=== PATIENT | male | born 1945 | race Caucasian/White ===

== ENCOUNTER → 2016-07-19 | Outpatient (CLI) | payer OTHER ==
[~2016-07-19] MED LIST: BNC/40 PO; FENO200C6 PO; IPRA1AER2 INH; MECL1TAB40 PO; MOME6000 NAE; MULT-506 PO; NIAC500T11 PO; NXM/40 PO; OMEG10007 PO; TRIA37.5 PO; WLC625 PO
[2016-07-19 17:41] LABS: ALT/SGPT 35 U/L (12-78); BLOOD UREA NITROGEN 23 mg/dl (7-18); BUN/CREATININE RATIO 20.7 (10-20); CALCIUM 10.1 mg/dl (8.5-10.1); CARBON DIOXIDE 27 mmol/L (21-32); CHLORIDE 104 mmol/L (98-107); CHOLESTEROL 198 mg/dl (0-200); CHOLESTEROL/HDL RATIO 8.3; GLUCOSE 116 mg/dl (70-99); HDL CHOLESTEROL 24 mg/dl; POTASSIUM 3.9 mmol/L (3.5-5.1); SODIUM 140 mmol/L (136-145); TRIGLYCERIDES 499 mg/dl (0-150)
[2016-07-20 06:55] LABS: ESTIMATED AVERAGE GLUCOSE 148 mg/dl; HA1C FLAG Normal (Normal)
== END | disposition home or self-care (01) ==
LOC: C.LABPBG 13:23
PROVIDERS: ATTEND Family Medicine
DX: Z00.00 Encounter for general adult medical examination without abnormal findings (principal); E78.1 Pure hyperglyceridemia; E78.5 Hyperlipidemia, unspecified; R73.09 Other abnormal glucose; N17.9 Acute kidney failure, unspecified

== ENCOUNTER → 2017-01-31 | Outpatient (CLI) | payer OTHER ==
[2017-01-31 12:32] LABS: ALT/SGPT 40 U/L (12-78); BLOOD UREA NITROGEN 27 mg/dl (7-18); BUN/CREATININE RATIO 19.1 (10-20); CALCIUM 10.1 mg/dl (8.5-10.1); CARBON DIOXIDE 31 mmol/L (21-32); CHLORIDE 104 mmol/L (98-107); CHOLESTEROL 226 mg/dl (0-200); CHOLESTEROL/HDL RATIO 7.1; GLUCOSE 124 mg/dl (70-99); HDL CHOLESTEROL 32 mg/dl; SODIUM 138 mmol/L (136-145)
[2017-01-31 12:33] LABS: LDL CHOLESTEROL CALCULATED 140 mg/dl; TRIGLYCERIDES 269 mg/dl (0-150); VERY LOW DENSITY LIPOPROT CALC 54 mg/dl
[2017-01-31 13:00] LABS: ESTIMATED AVERAGE GLUCOSE 148 mg/dl; HA1C FLAG Normal (Normal)
== END | disposition home or self-care (01) ==
LOC: C.LABPBG 07:56
PROVIDERS: ATTEND Family Medicine
DX: E78.5 Hyperlipidemia, unspecified (principal); R73.09 Other abnormal glucose

== ENCOUNTER → 2017-04-03 | Day surgery (SDC) | payer OTHER ==
[2017-03-17 07:38] VITALS: Ht 182.9 cm; Wt 119.1 kg
[~2017-04-03] VITALS: Ht 182.9 cm; Wt 119.1 kg
[~2017-04-03] MED LIST changes: +LIDOCAINE HCL 2% 2 ML VIAL (20MG/ML) ONE; +PROPOFOL IV EMULSION 10 MG/ML 20 ML VIAL IV ONE
--- NOTE | 2017-04-03 12:52 | Endo History and Physical ---
History & Physical Date of Service: Apr 03, 2017. Chief Complaint: Screening Referring Physician: Dr. Mallory History of Present Illness 71 yo CM who presents for screening colonoscopy. Past Surgical History Hx Cardiac Surgery: No Hx Internal Defibrillator: No Hx Pacemaker: No Hx Abdominal Surgery: Yes (APPY) Hx of Implantable Prosthesis: No Hx Post-Op Nausea and Vomiting: No Hx Cancer Surgery: No Hx Thoracic Surgery: No Hx Orthopedic: Yes (RT KNEE SURGERY X2) Hx Urinary Tract Surgery: No Family History Polyp Social History Smoking Status: Former Smoker Hx Substance Use: No Hx Alcohol Use: No Allergies Coded Allergies: No Known Allergies (Unverified , 04/03/17) Current Medications Reported Home Medications Medications Dose Route/Sig Max Daily Dose Days Date Category Mometasone Furoate (Mometasone Furoate (Nasal)) 50 Mcg/Act Spr 2 [place] SYLVIE DAILY PRN 03/17/17 Reported Niacin 500 Mg Tab 500 Mg PO QPM 03/17/17 Reported [place]-3 (Fish Oil) 1 Ea Cap 1 Cap PO QPM 03/17/17 Reported Multivitamin (Multivitamins) Tab 1 Tab PO QAM 03/17/17 Reported Meclizine HCl 12.5 Mg Tab 1 Tab PO BID 03/17/17 Reported Dyazide 37.5MG/25MG (Triamterene/HCTZ) Cap 2 Tabs PO QAM 03/17/17 Reported Nexium (Esomeprazole Magnesium) 40 Mg Cap 40 Mg PO QAM 03/17/17 Reported Benicar (Olmesartan Medoxomil) 40 Mg Tab 40 Mg PO QPM 03/17/17 Reported Tricor (Fenofibrate) 200 Mg Cap 200 Mg PO QAM 03/17/17 Reported Welchol (Colesevelam Hcl) 625 Mg Tab 3 Tabs PO BID 03/17/17 Reported Vital Signs Weight (Kilograms): 119.09 Height (Feet): 6 Height (Inches): 0 Physical Exam General Appearance: WD/WN, no apparent distress Respiratory/Chest: Auscultation: breath sounds normal Cardiovascular: Heart Auscultation: RRR Abdomen: Bowel Sounds: normal Inspection & Palpation: soft, non-distended, no tenderness, guarding & rebound Assessment and Plan Assessment: 71 yo CM who presents for screening colonoscopy. Plan: Proceed with colonoscopy.
--- NOTE | 2017-04-03 13:42 | GI REPORT ---
Procedure Date: 04/03/2017 1:07 PM Procedure: Colonoscopy Indications: Screening for colorectal malignant neoplasm Medicines: Monitored Anesthesia Care Complications: No immediate complications. Estimated Blood Loss: Estimated blood loss: none. Procedure: Pre-Anesthesia Assessment: - Prior to the procedure, a History and Physical was performed, and patient medications and allergies were reviewed. The patient's tolerance of previous anesthesia was also reviewed. The risks and benefits of the procedure and the sedation options and risks were discussed with the patient. All questions were answered, and informed consent was obtained. Prior Anticoagulants: The patient has taken no previous anticoagulant or antiplatelet agents. ASA Grade Assessment: III - A patient with severe systemic disease. After reviewing the risks and benefits, the patient was deemed in satisfactory condition to undergo the procedure. After I obtained informed consent, the scope was passed under direct vision. Throughout the procedure, the patient's blood pressure, pulse, and oxygen saturations were monitored continuously. The scope was introduced through the anus and advanced to the terminal ileum. The colonoscopy was performed without difficulty. The patient tolerated the procedure well. The quality of the bowel preparation was good. The terminal ileum, ileocecal valve, appendiceal orifice, and rectum were photographed. Findings: Three sessile polyps were found in the ascending colon. The polyps were 4 to 7 mm in size. These polyps were removed with a hot snare. Resection was complete, but the polyp tissue was only partially retrieved. Multiple small-mouthed diverticula were found in the sigmoid colon. Non-bleeding internal hemorrhoids were found during retroflexion. The hemorrhoids were small. Impression: - Three 4 to 7 mm polyps in the ascending colon, removed with a hot snare. Complete resection. Partial retrieval. - Diverticulosis in the sigmoid colon. - Non-bleeding internal hemorrhoids. Recommendation: - Resume previous diet. - Continue present medications. - Repeat colonoscopy for surveillance based on pathology results. - Return to primary care physician as previously scheduled. Amos Victoria, DO 04/03/2017 1:41:58 PM This report has been signed electronically. Note Initiated On: 04/03/2017 1:07 PM I attest to the content of the Intraoperative Record and orders documented therein, exceptions below
--- NOTE | 2017-04-03 13:57 | Anesthesiology Progress Note ---
Anesthesia Post Op Note Date & Time Apr 03, 2017 at 13:56 Vital Signs Pain Intensity: 0 Vital Signs Past 12 Hours Date Time Temp Pulse Resp B/P (MAP) Pulse Ox O2 Delivery O2 Flow Rate FiO2 04/03/17 13:49 84 20 141/79 (99) 94 Room Air 04/03/17 13:34 36.4 92 20 125/78 (94) 94 Nasal Cannula 6 04/03/17 12:45 36.9 90 20 140/76 (97) 94 Room Air Notes Mental Status: alert / awake / arousable, participated in evaluation Pt Amnestic to Procedure: Yes Nausea / Vomiting: adequately controlled Pain: adequately controlled Airway Patency, RR, SpO2: stable & adequate BP & HR: stable & adequate Hydration State: stable & adequate Anesthetic Complications: no major complications apparent
[2017-04-03 14:05] VITALS: BP 133/85; PULSE 81; O2SAT 94
--- NOTE | 2017-04-03 14:11 | Discharge Instructions ---
Endoscopy Patient Instructions Date / Procedure(s) Performed Apr 03, 2017. Colonoscopy Allergy Information Coded Allergies: No Known Allergies (Unverified , 04/03/17) Discharge Date / Findings Apr 03, 2017. Colon polyps Diverticulosis Internal hemorrhoids Medication Instructions Stopped Medication(s): nexium,Tricor,Fish Oil OK to resume all medications today as prescribed Reported Home Medications Medications Dose Route/Sig Max Daily Dose Days Date Category Mometasone Furoate (Mometasone Furoate (Nasal)) 50 Mcg/Act Spr 2 [place] SYLVIE DAILY PRN 03/17/17 Reported Niacin 500 Mg Tab 500 Mg PO QPM 03/17/17 Reported [place]-3 (Fish Oil) 1 Ea Cap 1 Cap PO QPM 03/17/17 Reported Multivitamin (Multivitamins) Tab 1 Tab PO QAM 03/17/17 Reported Meclizine HCl 12.5 Mg Tab 1 Tab PO BID 03/17/17 Reported Dyazide 37.5MG/25MG (Triamterene/HCTZ) Cap 2 Tabs PO QAM 03/17/17 Reported Nexium (Esomeprazole Magnesium) 40 Mg Cap 40 Mg PO QAM 03/17/17 Reported Benicar (Olmesartan Medoxomil) 40 Mg Tab 40 Mg PO QPM 03/17/17 Reported Tricor (Fenofibrate) 200 Mg Cap 200 Mg PO QAM 03/17/17 Reported Welchol (Colesevelam Hcl) 625 Mg Tab 3 Tabs PO BID 03/17/17 Reported Provider Instructions Activity Restrictions - No exercising or heavy lifting for 24 hours. - Do not drink alcohol the day of the procedure. - Do not drive a car or operate machinery until the day after the procedure. - Do not make any important decisions or sign important papers in 24 hours after the procedure. Following Day: - Return to full activity which may include returning to work/school. Diet Start your diet with liquids and light foods (jello, soup, juice, toast). Then eat your usual diet if not nauseated. Treatment For Common After Affects For mild abdominal pain, bloating, or excessive gas: - Rest - Eat lightly - Lie on right side Follow-Up Information Follow-up with Dr Mallory as scheduled Anesthesia Information What You Should Know You have had a procedure that required some medicine to reduce anxiety and discomfort. This treatment is called moderate sedation. After receiving the treatment, you may be sleepy, but you will be able to breathe on your own. The effects of the treatment may last for several hours. Follow these instructions along with Activity/Diet recommendations noted above: * Do NOT do anything where dizziness or clumsiness would be dangerous. * Rest quietly at home today, then you can be up and about tomorrow. * Have a responsible person stay with you the rest of today. * You may have had an I.V. today. If so, you may take the dressing off later today. Recommendations Call your doctor if: * Trouble breathing * Continuous vomiting for more than 24 hours * Temperature above 101 degrees * Severe abdominal pain or bloating * Pain not relieved by pain medicine ordered * There is increased drainage or redness from any incision * A large amount of rectal bleeding greater than 2-3 tablespoons. (If you had a polyp/s removed or have hemorrhoids, a small amount of blood - from the rectum is to be expected.) * You have any unanswered questions or concerns. IN THE EVENT OF A SERIOUS EMERGENCY, GO TO THE NEAREST EMERGENCY ROOM Your discharge instructions were prepared by provider Amos Victoria. Patient Instructions Signature Page Eder Self Patient (or Guardian) Signature/Date: I have read and understand the instructions given to me by my caregivers. Caregiver/RN/Doctor Signature/Date: The above-named patient and/or guardian has received patient instructions on this date. + Original Patient Signature Page (only) stays with chart. Please make copy for patient.
== END | disposition home or self-care (01) ==
LOC: C.GI 12:13
PROVIDERS: ATTEND Internal Medicine
DX: Z12.11 Encounter for screening for malignant neoplasm of colon (principal); D12.2 Benign neoplasm of ascending colon; K57.30 Diverticulosis of large intestine without perforation or abscess without bleeding; K64.8 Other hemorrhoids; I10 Essential (primary) hypertension; G47.33 Obstructive sleep apnea (adult) (pediatric); Z68.35 Body mass index [BMI] 35.0-35.9, adult; E66.9 Obesity, unspecified

== ENCOUNTER → 2017-08-11 | Outpatient (CLI) | payer OTHER ==
[~2017-08-11] MED LIST changes: -IPRA1AER2 INH; -LIDOCAINE HCL 2% 2 ML VIAL (20MG/ML) ONE; -PROPOFOL IV EMULSION 10 MG/ML 20 ML VIAL IV ONE
[2017-08-11 13:08] LABS: HEMOGLOBIN A1C 7.6 % (4.5-5.6)
[2017-08-11 13:50] LABS: ALT/SGPT 35 U/L (12-78); BLOOD UREA NITROGEN 20 mg/dl (7-18); CALCIUM 9.5 mg/dl (8.5-10.1); CARBON DIOXIDE 27 mmol/L (21-32); CREATININE 1.16 mg/dl (0.60-1.40); GLUCOSE 153 mg/dl (70-99); SODIUM 137 mmol/L (136-145)
[2017-08-11 13:53] LABS: CHOLESTEROL 192 mg/dl (0-200); LDL CHOLESTEROL CALCULATED 93 mg/dl
== END | disposition home or self-care (01) ==
LOC: C.LABPBG 07:43
PROVIDERS: ATTEND Family Medicine
DX: E78.1 Pure hyperglyceridemia (principal); E78.5 Hyperlipidemia, unspecified; I10 Essential (primary) hypertension; R73.09 Other abnormal glucose

== ENCOUNTER → 2017-11-11 | Outpatient (CLI) | payer OTHER ==
[2017-11-11 13:46] LABS: HEMOGLOBIN A1C 7.3 % (4.5-5.6)
[2017-11-11 14:31] LABS: BLOOD UREA NITROGEN 30 mg/dl (7-18); CARBON DIOXIDE 28 mmol/L (21-32); CREATININE 1.48 mg/dl (0.60-1.40); GLUCOSE 125 mg/dl (70-99); POTASSIUM 4.2 mmol/L (3.5-5.1); SODIUM 137 mmol/L (136-145)
== END | disposition home or self-care (01) ==
LOC: C.LABPBG 07:34
PROVIDERS: ATTEND Family Medicine
DX: E11.65 Type 2 diabetes mellitus with hyperglycemia (principal)

== ENCOUNTER → 2018-01-20 | Outpatient (CLI) | payer OTHER ==
[2018-01-20 16:52] LABS: BLOOD UREA NITROGEN 21 mg/dl (7-18); CALCIUM 9.6 mg/dl (8.5-10.1); CARBON DIOXIDE 27 mmol/L (21-32); CREATININE 1.44 mg/dl (0.60-1.40); GLUCOSE 165 mg/dl (70-99); POTASSIUM 4.1 mmol/L (3.5-5.1); SODIUM 135 mmol/L (136-145)
== END | disposition home or self-care (01) ==
LOC: C.LABPBG 12:05
PROVIDERS: ATTEND Family Medicine
DX: N17.9 Acute kidney failure, unspecified (principal)